=== PATIENT | female | born 1995 | race Caucasian/White ===

== ENCOUNTER 2020-05-20 10:52 | Emergency (ER) | payer OTHER, SELFPAY ==
[~2020-05-20] VITALS: Ht 165.1 cm; Wt 66.2 kg
[2020-05-20 10:55] VITALS: BP 129/87; Ht 165.1 cm; Wt 66.2 kg
== END 2020-05-20 12:07 | disposition home or self-care (01) ==
LOC: ED 10:52
DX: Z02.82 Encounter for adoption services (principal)
CPT/HCPCS: U0003